=== PATIENT | female | born 1980 | race African-American/Black ===

== ENCOUNTER 2020-04-09 22:55 | Emergency (ER) | payer MEDICAID ==
[~2020-04-09] VITALS: Ht 160 cm; Wt 82.2 kg
[2020-04-10 00:01] VITALS: BP 145/111
== END 2020-04-10 00:01 | disposition home or self-care (01) ==
LOC: ED 22:55
DX: L30.9 Dermatitis, unspecified (principal)

== ENCOUNTER 2020-05-16 23:39 | Emergency (ER) | payer MEDICAID ==
[2020-05-16 23:55] VITALS: Ht 160 cm
[2020-05-17 05:52] VITALS: BP 166/107
== END 2020-05-17 05:52 | disposition home or self-care (01) ==
LOC: ED 23:39
DX: S00.511A Abrasion of lip, initial encounter (principal); J34.89 Other specified disorders of nose and nasal sinuses; Y04.2XXA Assault by strike against or bumped into by another person, initial encounter; Y93.89 Activity, other specified; Y92.89 Other specified places as the place of occurrence of the external cause; Y99.8 Other external cause status